=== PATIENT | male | born 1960 | race Caucasian/White ===

== ENCOUNTER 2024-08-31 17:16 | Emergency (ER) | payer OTHER ==
[2024-08-31] MEDS: Bacitracin Oint 1 GM U/D Packet TOP ONE (18:35)
[2024-08-31] MEDS: Lidocaine 1% 5 ML VIAL INJECT ONE (18:35)
[2024-08-31] MEDS: Diphtheria,Pertussis(Acell),Tetanus Vaccine 0.5 ML Syringe IM ONE (18:58)
== END 2024-08-31 19:21 | disposition home or self-care (01) ==
LOC: JP.ED 17:16
DX: S60.352A Superficial foreign body of left thumb, initial encounter (principal); S60.451A Superficial foreign body of left index finger, initial encounter; Z23 Encounter for immunization; E78.00 Pure hypercholesterolemia, unspecified; E11.9 Type 2 diabetes mellitus without complications; Z87.891 Personal history of nicotine dependence; W45.8XXA Other foreign body or object entering through skin, initial encounter; Y93.89 Activity, other specified
CPT/HCPCS: 90471; 90715; 99283; J2003